=== PATIENT | male | born 1985 | race Caucasian/White ===

== ENCOUNTER 2021-11-04 18:58 | Emergency (ER) | payer BC ==
[~2021-11-04] VITALS: Ht 175.2 cm; Wt 97.5 kg
[~2021-11-04 18:58] MED LIST: BIAXIN500 MG PO; MEDROL DOSEPAK4 MG PO; NKHM; PROVENTIL0.09 MG/AC IH; ULTRAM50 MG PO; VICODIN 500 MG-1 TAB PO
[2021-11-04 19:12] VITALS: BP 182/105
[2021-11-04] MEDS ORDERED: AUGMENTIN 875-875 MG PO (20:10)
== END 2021-11-04 20:27 | disposition home or self-care (01) ==
LOC: ED 18:58
DX: S60.221A Contusion of right hand, initial encounter (principal); X58.XXXA Exposure to other specified factors, initial encounter; Y93.89 Activity, other specified; Y92.89 Other specified places as the place of occurrence of the external cause; Y99.8 Other external cause status

== ENCOUNTER 2022-05-14 18:23 | Emergency (ER) | payer BC ==
[~2022-05-14] VITALS: Ht 175.2 cm; Wt 93.4 kg
[~2022-05-14 18:23] MED LIST changes: +AUGMENTIN 875-875 MG PO
[2022-05-14 18:24] VITALS: BP 122/80
[2022-05-14] MEDS ORDERED: SEPTDS PO (19:18)
== END 2022-05-14 19:27 | disposition home or self-care (01) ==
LOC: ED 18:23
DX: S60.141A Contusion of right ring finger with damage to nail, initial encounter (principal); W23.0XXA Caught, crushed, jammed, or pinched between moving objects, initial encounter; Y93.89 Activity, other specified; Y92.89 Other specified places as the place of occurrence of the external cause; Y99.8 Other external cause status

== ENCOUNTER 2023-01-08 12:38 | Emergency (ER) | payer OTHER ==
[~2023-01-08] VITALS: Wt 99.8 kg
[~2023-01-08 12:38] MED LIST changes: +SEPTDS PO
[2023-01-08 12:56] VITALS: BP 155/84
== END 2023-01-08 13:32 | disposition home or self-care (01) ==
LOC: ED 12:38
DX: S61.432A Puncture wound without foreign body of left hand, initial encounter (principal); Z98.890 Other specified postprocedural states; W22.8XXA Striking against or struck by other objects, initial encounter; Y93.39 Activity, other involving climbing, rappelling and jumping off; Y92.89 Other specified places as the place of occurrence of the external cause; Y99.8 Other external cause status

== ENCOUNTER → 2023-07-30 | Outpatient (CLI) | payer OTHER ==
[2023-07-30 14:56] LABS: BASO % 0.4 % (0.0-1.0); EOS # 0.1 10*3/uL (0.0-0.4); EOS % 1.2 % (1.0-4.0); HEMATOCRIT 46.5 % (42.0-52.0); LYMPH # 1.6 10*3/uL (1.3-4.4); LYMPH % 14.5 % (27.0-41.0); MEAN CELL VOLUME 84.4 fl (80.0-94.0); MEAN CORPUSCULAR HGB CONC 34.4 g/dl (33.0-37.0); MEAN PLATELET VOLUME 9.1 fl (9.6-12.3); MONO # 0.4 10*3/uL (0.1-1.0); MONO % 3.4 % (3.0-9.0); NEUT % 80.1 % (47.0-73.0); PLATELET COUNT AUTOMATED 247 10*3/uL (130-400); RED BLOOD COUNT 5.51 10*6/uL (4.50-5.90); RED CELL DISTRI WIDTH 13.4 % (0-14.5); WHITE BLOOD COUNT 11.3 10*3/uL (4.8-10.8)
[2023-07-30 15:11] LABS: ALKALINE PHOSPHATASE 82 U/L (46-116); BUN 10 mg/dl (9-23); CHLORIDE 102 mmol/L (98-107); POTASSIUM 4.1 mmol/L (3.4-5.1); SGPT/ALT 19 U/L (5-49); TOTAL PROTEIN 7.8 gm/dL (6.0-8.0)
== END | disposition home or self-care (01) ==
LOC: LAB 14:34
PROVIDERS: ATTEND Nurse Practitioner Family
DX: L20.89 Other atopic dermatitis (principal)